=== PATIENT | female | born 1970 | race Caucasian/White ===

== ENCOUNTER → 2019-06-30 | Outpatient (CLI) | payer MEDICAID ==
[~2019-06-30] VITALS: Ht 162.6 cm; Wt 102.1 kg
[~2019-06-30] MED LIST: ASPI-404 PO; BACL10TA PO; BISA-60 PO; BUPR300T28 PO; CETI10TA80 PO; CHOL500014 PO; DICL-176 PO; DIPH25CA46 PO; GEMF600T7 PO; HYDR-531 PO; LORA-622 PO; LORA2TAB10 PO; MAGN400T5 PO; MECL-87 PO; METO25TA62 PO; OMEP20TA PO; OXYB5TAB24 PO
[2019-06-30 09:45] LABS: Basophils # (auto) 0 uL; Basophils % (auto) 0.8 % (0.0-2.0); Eosinophils # (auto) 0.2 uL; Eosinophils % (auto) 3.8 % (0.0-7.0); Hematocrit 35.8 % (36.0-46.0); Hemoglobin 11.7 g/dL (12.2-16.2); Lymphocytes # (auto) 2.2 uL; Lymphocytes % (auto) 41.2 % (10.0-50.0); Mean Corpuscular Hemoglobin 29.5 pg (28.0-32.0); Mean Corpuscular Hgb Conc. 32.8 g/dL (32.0-36.0); Mean Corpuscular Volume 89.8 fL (80.0-100.0); Monocytes # (auto) 0.4 uL; Monocytes % (auto) 7.2 % (0.0-12.0); Neutrophils # (auto) 2.5 uL; Platelet Count (auto) 240 10^3/uL (140-450); Red Blood Cells 3.98 10^6/uL (4.0-5.20); Red Cell Distribution Width 14.8 % (11.8-14.3); White Blood Cell 5.3 10^3/uL (4.4-10.8)
[2019-06-30 09:47] LABS: Urine Bacteria NONE SEEN /hpf (None Seen); Urine Blood Negative /uL (Negative); Urine Specific Gravity 1.013 (1.001-1.035); Urine WBC 1 /hpf (0 - 5)
[2019-06-30 09:56] LABS: INR 0.95 (0.9-1.15); Partial Thromboplastin Time 29.9 sec (23.64-32.05)
[2019-06-30 10:28] LABS: Potassium 3.8 mmol/L (3.5-5.1)
[2019-06-30 10:34] LABS: BUN/Creatinine Ratio 19.2; Bilirubin, Total 0.2 mg/dL (0.2-1.0); Calcium 9.3 mg/dL (8.5-10.1); Total Protein 7.3 g/dL (6.4-8.2)
== END | disposition home or self-care (01) ==
LOC: SUR 09:05 → EDSTATUS 07-02 13:45
PROVIDERS: ATTEND Podiatrist
DX: Z01.812 Encounter for preprocedural laboratory examination (principal); M93.272 Osteochondritis dissecans, left ankle and joints of left foot; E66.9 Obesity, unspecified; Z68.38 Body mass index [BMI] 38.0-38.9, adult; Z98.890 Other specified postprocedural states; Z91.041 Radiographic dye allergy status; Z79.82 Long term (current) use of aspirin; Z79.899 Other long term (current) drug therapy
CPT/HCPCS: 36415; 80053; 81001; 85025; 85610; 85730